=== PATIENT | male | born 1975 | race Caucasian/White ===

== ENCOUNTER 2018-04-04 11:01 | Emergency (ER) | payer OTHER ==
[~2018-04-04] VITALS: Ht 188 cm; Wt 136.1 kg
[2018-04-04 11:53] VITALS: BP 135/93
== END 2018-04-04 11:54 | disposition home or self-care (01) ==
LOC: M.ERS 11:01
DX: S61.411A Laceration without foreign body of right hand, initial encounter (principal); I10 Essential (primary) hypertension; W26.0XXA Contact with knife, initial encounter; Y93.89 Activity, other specified; Y92.89 Other specified places as the place of occurrence of the external cause; Y99.8 Other external cause status

== ENCOUNTER 2019-09-12 12:52 | Emergency (ER) | payer OTHER ==
[~2019-09-12] VITALS: Ht 188 cm; Wt 145.2 kg
[2019-09-12] MEDS ORDERED: LISINOPRIL2.5 MG PO (13:03)
[2019-09-12] MEDS ORDERED: NORCO 5-325 TA1 EAC1 PO (13:47)
[2019-09-12] MEDS ORDERED: KEFLEX500 M1 PO (13:47)
[2019-09-12 14:15] VITALS: BP 150/78
== END 2019-09-12 14:15 | disposition home or self-care (01) ==
LOC: M.ERS 12:52
DX: S61.311A Laceration without foreign body of left index finger with damage to nail, initial encounter (principal); I10 Essential (primary) hypertension; W26.8XXA Contact with other sharp object(s), not elsewhere classified, initial encounter; Y93.89 Activity, other specified; Y92.89 Other specified places as the place of occurrence of the external cause; Y99.8 Other external cause status